=== PATIENT | female | born 1935 | race Caucasian/White ===

== ENCOUNTER → 2016-12-01 | Outpatient (CLI) | payer MEDICARE, OTHER ==
[~2016-12-01] MED LIST: ASPI81TA69 PO; ATE50T PO; CALCTAB83 OR; CHOL100047 PO; LEVO50TA61 PO; NOR10T PO; POTA-167 PO; PRAS10TA PO; [UNRECOGNIZED DRUG - CODE] TL
== END | disposition home or self-care (01) ==
LOC: Rad HDHVI 12:10
PROVIDERS: ATTEND Internal Medicine Cardiovascular Disease
DX: R05 Cough (principal)
CPT/HCPCS: 71020

== ENCOUNTER → 2017-02-20 | Outpatient (CLI) | payer MEDICARE, OTHER | END | disposition home or self-care (01) | LOC: Rad HDHVI 13:53 | PROVIDERS: ATTEND Internal Medicine Cardiovascular Disease | DX: I70.0 Atherosclerosis of aorta (principal) | CPT/HCPCS: 71020 ==

== ENCOUNTER → 2017-04-27 | Outpatient (CLI) | payer MEDICARE, OTHER ==
[2017-04-27 13:04] LABS: Basophils # (auto) 0 uL; Basophils % (auto) 0.5 % (0.0-2.0); CONDITION Y; Eosinophils # (auto) 0.2 uL; Eosinophils % (auto) 2.8 % (0.0-7.0); Hemoglobin 14.1 g/dL (12.2-16.2); Lymphocytes # (auto) 2.3 uL; Lymphocytes % (auto) 34.3 % (10.0-50.0); Mean Corpuscular Hemoglobin 30.6 pg (28.0-32.0); Mean Corpuscular Hgb Conc. 33.5 g/dL (32.0-36.0); Mean Corpuscular Volume 91.1 fL (80.0-100.0); Mean Platelet Volume 8.6 fL (7.4-10.4); Monocytes # (auto) 0.5 uL; Monocytes % (auto) 7.6 % (0.0-12.0); Neutrophils # (auto) 3.6 uL; Neutrophils % (auto) 54.8 % (37.0-80.0); Platelet Count (auto) 256 10^3/uL (140-450); Red Cell Distribution Width 14.7 % (11.6-16.0); White Blood Cell 6.6 10^3/uL (4.4-10.8)
[2017-04-27 13:08] LABS: Urine Bilirubin Negative (Negative); Urine Blood Negative /uL (Negative); Urine Color Yellow (Yellow); Urine Glucose Normal (Normal); Urine Ketone Negative (Negative); Urine Nitrite Negative (Negative); Urine Urobilinogen Normal (Negative); Urine pH 5.5 (5.0-8.0)
[2017-04-27 13:33] LABS: Albumin 3.8 g/dL (3.4-5.0); Alkaline Phosphatase 56 U/L (45-117); Anion Gap 6 (5-15); Aspartate Aminotransferase 21 U/L (15-37); BUN/Creatinine Ratio 27.4; Bilirubin, Direct < 0.1 mg/dL (0-0.2); Bilirubin, Total 0.5 mg/dL (0.2-1.0); Blood Urea Nitrogen 17 mg/dL (7-18); Carbon Dioxide 28 mmol/L (21-32); Chloride 107 mmol/L (98-107); Cholesterol 187 mg/dL (< 200); GFR African American 118 mL/min; GFR Non-African American 98 mL/min; Glucose 91 mg/dL (74-106); HDL Cholesterol 33 mg/dL (40-59); LDL Cholesterol 132 mg/dL (< 100); Potassium 4.1 mmol/L (3.5-5.1); Sodium 141 mmol/L (136-145); Total Protein 7.3 g/dL (6.4-8.2); Triglycerides 120 mg/dL (< 150)
== END | disposition home or self-care (01) ==
LOC: Rad HDHVI 11:01
PROVIDERS: ATTEND Internal Medicine Cardiovascular Disease
DX: E03.9 Hypothyroidism, unspecified (principal); E78.00 Pure hypercholesterolemia, unspecified; D64.9 Anemia, unspecified; I10 Essential (primary) hypertension; E55.9 Vitamin D deficiency, unspecified; K74.1 Hepatic sclerosis; E11.9 Type 2 diabetes mellitus without complications; N39.0 Urinary tract infection, site not specified
CPT/HCPCS: 36415; 74176; 80048; 80061; 80076; 81003; 82306; 83036; 84443; 85025; 87086

== ENCOUNTER → 2017-07-24 | Outpatient (CLI) | payer MEDICARE, MEDICAID ==
[2017-07-24 13:01] LABS: Calcium 8.9 mg/dL (8.5-10.1); Potassium 4.6 mmol/L (3.5-5.1)
== END | disposition home or self-care (01) ==
LOC: LAB 09:58
PROVIDERS: ATTEND Internal Medicine Cardiovascular Disease
DX: I10 Essential (primary) hypertension (principal); E11.9 Type 2 diabetes mellitus without complications
CPT/HCPCS: 36415; 80048; 83036

== ENCOUNTER → 2017-09-24 | Outpatient (CLI) | payer MEDICARE, MEDICAID | END | disposition home or self-care (01) | LOC: Rad HDHVI 11:39 | PROVIDERS: ATTEND Internal Medicine Cardiovascular Disease | DX: G31.89 Other specified degenerative diseases of nervous system (principal); I67.2 Cerebral atherosclerosis; I67.82 Cerebral ischemia | CPT/HCPCS: 70450 ==

== ENCOUNTER → 2017-10-09 | Outpatient (CLI) | payer MEDICARE, MEDICAID | END | disposition home or self-care (01) | LOC: Rad HDHVI 12:52 | PROVIDERS: ATTEND Internal Medicine Cardiovascular Disease | DX: I70.0 Atherosclerosis of aorta (principal); M47.899 Other spondylosis, site unspecified | CPT/HCPCS: 71020 ==

== ENCOUNTER 2017-10-16 18:27 | Emergency (ER) | payer MEDICARE, MEDICAID ==
[~2017-10-16] VITALS: Ht 160 cm; Wt 56.2 kg
[2017-10-16 19:36] VITALS: BP 173/78
[2017-10-16 21:14] LABS: Urine Bacteria NONE SEEN /hpf (None Seen); Urine Blood Negative /uL (Negative); Urine Mucus FEW (None Seen); Urine Specific Gravity 1.038 (1.001-1.035); Urine WBC 27 /hpf (0 - 5)
[2017-10-16 22:34] LABS: Alanine Aminotransferase 68 U/L (13-56); Albumin 3.7 g/dL (3.4-5.0); Alkaline Phosphatase 61 U/L (45-117); Anion Gap 8 (5-15); Aspartate Aminotransferase 28 U/L (15-37); BUN/Creatinine Ratio 39.7; Bilirubin, Total 0.5 mg/dL (0.2-1.0); Blood Urea Nitrogen 29 mg/dL (7-18); Calcium 8.5 mg/dL (8.5-10.1); Carbon Dioxide 26 mmol/L (21-32); Chloride 107 mmol/L (98-107); GFR African American 98 mL/min; GFR Non-African American 81 mL/min; Glucose 97 mg/dL (74-106); Sodium 141 mmol/L (136-145); Total Protein 7.1 g/dL (6.4-8.2)
[2017-10-16 22:50] LABS: Basophils # (auto) 0 uL; Basophils % (auto) 0.2 % (0.0-2.0); Eosinophils # (auto) 0 uL; Eosinophils % (auto) 0.4 % (0.0-7.0); Hematocrit 47.4 % (36.0-46.0); Hemoglobin 15.9 g/dL (12.2-16.2); Lymphocytes # (auto) 3.3 uL; Lymphocytes % (auto) 32.5 % (10.0-50.0); Mean Corpuscular Hemoglobin 30.3 pg (28.0-32.0); Mean Corpuscular Hgb Conc. 33.5 g/dL (32.0-36.0); Mean Corpuscular Volume 90.4 fL (80.0-100.0); Monocytes # (auto) 0.9 uL; Neutrophils # (auto) 5.8 uL; Neutrophils % (auto) 57.9 % (37.0-80.0); Nucleated Red Blood Cells % 0.1 %; Platelet Count (auto) 315 10^3/uL (140-450); Red Blood Cells 5.24 10^6/uL (4.0-5.20); Red Cell Distribution Width 16.1 % (11.8-14.3)
[2017-10-16 23:07] LABS: INR 1.03 (0.9-1.15); Partial Thromboplastin Time 25.4 sec (22.64-33.71); Prothrombin Time 11.2 sec (9.37-12.3)
[2017-10-16] MEDS ORDERED: SODIUM CHLORIDE 0.9% 1,000 ML IV ONE (23:25)
[2017-10-16] MEDS ORDERED: IPRATROPIUM BROM 0.5 MG/2.5ML INH SOL NEB ONE (23:30)
[2017-10-16] MEDS ORDERED: methylPREDNISolone SOD SUCC 125 MG/2 ML VL IV ONE (23:30)
[2017-10-16] MEDS ORDERED: ALBUTEROL SULF 2.5 MG/0.5ML(0.5%) NEB SOLN NEB ONE (23:30)
[2017-10-16] MEDS ORDERED: cefTRIAXone 1GM/10ml IVPUSH 10 ML IV ONE (23:30)
== END 2017-10-17 02:24 | disposition left against medical advice (07) ==
LOC: ER 18:27
DX: J44.1 Chronic obstructive pulmonary disease with (acute) exacerbation (principal); N39.0 Urinary tract infection, site not specified; I10 Essential (primary) hypertension; E78.5 Hyperlipidemia, unspecified; Z87.891 Personal history of nicotine dependence
CPT/HCPCS: 36415; 71046; 80053; 81001; 83880; 84484; 85025; 85610; 85730; 93005

== ENCOUNTER → 2018-02-19 | Outpatient (CLI) | payer MEDICARE, MEDICAID | END | disposition home or self-care (01) | LOC: Rad HDHVI 11:00 | PROVIDERS: ATTEND Internal Medicine | DX: M19.012 Primary osteoarthritis, left shoulder (principal); M75.82 Other shoulder lesions, left shoulder; I10 Essential (primary) hypertension; E78.5 Hyperlipidemia, unspecified; J44.1 Chronic obstructive pulmonary disease with (acute) exacerbation | CPT/HCPCS: 73030 ==

== ENCOUNTER → 2018-12-16 | Outpatient (CLI) | payer MEDICARE, MEDICAID ==
[2018-12-16 16:17] LABS: BUN/Creatinine Ratio 28.1; Potassium 4.1 mmol/L (3.5-5.1)
== END | disposition home or self-care (01) ==
LOC: Rad HDHVI 10:58
PROVIDERS: ATTEND Internal Medicine
DX: M77.52 Other enthesopathy of left foot and ankle (principal); M10.9 Gout, unspecified; I10 Essential (primary) hypertension; I70.0 Atherosclerosis of aorta; J90 Pleural effusion, not elsewhere classified; M79.671 Pain in right foot
CPT/HCPCS: 36415; 71046; 73630; 80048; 84550

== ENCOUNTER → 2018-12-23 | Outpatient (CLI) | payer MEDICARE, MEDICAID ==
[~2018-12-23] MED LIST changes: +CYANOCOBALAMIN (B-12) 1000 MCG/1 ML VIAL IM ONE; +CYANOCOBALAMIN (B-12) 1000 MCG/1 ML VIAL ONE; +KETOROLAC TROMETH 60MG/2ML VIAL IM ONE; +MULTIPLE VITAMIN 10 ML, MAGNESIUM SULF SDV 50% 8 MEQ in SODIUM CHLORIDE 0.9% 1,000 ML IV SCH; +MVI in SODIUM CHLORIDE 0.9% 1,010 ML ONE; +cefTRIAXone 1GM/50ML D5W 50 ML IV ONE; +cefTRIAXone 1GM/50ML D5W 50 ML IV SCH
[2018-12-23 10:20] VITALS: BP 176/91
[2018-12-23 12:28] LABS: Basophils # (auto) 0 uL; Basophils % (auto) 0.1 % (0.0-2.0); Eosinophils # (auto) 0 uL; Hematocrit 45.3 % (36.0-46.0); Hemoglobin 15.4 g/dL (12.2-16.2); Lymphocytes # (auto) 1.2 uL; Lymphocytes % (auto) 13.5 % (10.0-50.0); Mean Corpuscular Hemoglobin 31.4 pg (28.0-32.0); Mean Corpuscular Volume 92.3 fL (80.0-100.0); Monocytes # (auto) 0.9 uL; Monocytes % (auto) 9.9 % (0.0-12.0); Neutrophils # (auto) 6.8 uL; Neutrophils % (auto) 76.5 % (37.0-80.0); Nucleated Red Blood Cells % 0.1 %; Platelet Count (auto) 245 10^3/uL (140-450); Red Blood Cells 4.91 10^6/uL (4.0-5.20); Red Cell Distribution Width 14.8 % (11.8-14.3); White Blood Cell 8.9 10^3/uL (4.4-10.8)
[2018-12-23 12:30] LABS: BUN/Creatinine Ratio 31.5; Calcium 8.8 mg/dL (8.5-10.1); Potassium 3.9 mmol/L (3.5-5.1)
[2018-12-23 13:15] VITALS: BP 150/88
--- NOTE | 2019-02-12 15:26 | NUR ---
[facility] ADDENDUM 1030 START TIME FOR BANANA BAG 1230 STOP TIME FOR BANANA BAG
== END | disposition home or self-care (01) ==
LOC: Rad HDHVI 10:12
PROVIDERS: ATTEND Internal Medicine Cardiovascular Disease
DX: D64.9 Anemia, unspecified (principal); R07.9 Chest pain, unspecified; J44.9 Chronic obstructive pulmonary disease, unspecified; R00.1 Bradycardia, unspecified; E86.0 Dehydration; I10 Essential (primary) hypertension; J18.9 Pneumonia, unspecified organism; M10.9 Gout, unspecified
CPT/HCPCS: 36415; 71046; 80048; 85025; 94640; 96365; 96366; 96372; 96375; G0463; J0696; J1885; J3411; J3420; J3475

== ENCOUNTER → 2018-12-25 | Outpatient (CLI) | payer MEDICARE, MEDICAID ==
[~2018-12-25] VITALS: Ht 30.5 cm; Wt 0.0 kg
[~2018-12-25] MED LIST changes: -CYANOCOBALAMIN (B-12) 1000 MCG/1 ML VIAL IM ONE; -CYANOCOBALAMIN (B-12) 1000 MCG/1 ML VIAL ONE; -KETOROLAC TROMETH 60MG/2ML VIAL IM ONE; -MULTIPLE VITAMIN 10 ML, MAGNESIUM SULF SDV 50% 8 MEQ in SODIUM CHLORIDE 0.9% 1,000 ML IV SCH; -MVI in SODIUM CHLORIDE 0.9% 1,010 ML ONE; -cefTRIAXone 1GM/50ML D5W 50 ML IV SCH; +cefTRIAXone SOD 1,000 MG VL ONE; +cloNIDine HCL 0.1 MG TAB ONE; +methylPREDNISolone SOD SUCC 125 MG/2 ML VL IV ONE; +methylPREDNISolone SOD SUCC 125 MG/2 ML VL ONE
[2018-12-25 10:33] VITALS: BP 177/74
[2018-12-25 11:40] VITALS: BP 174/73
--- NOTE | 2018-12-25 11:40 | NUR ---
[facility] Discharge Instructions See e-MAR for any mediations given with this visit. Patient education given on disease process. Patient verbalized understanding. Previous labs reviewed. Patient discharged in stable condition with after care instructions and follow up appointment. NOTE ROCEPHIN IVP ADMIN MICHELLE MAY SOLUMEDROL IVP ADMIN BY MICHELLE MAY
== END | disposition home or self-care (01) ==
LOC: CHF HDHVI 10:34
PROVIDERS: ATTEND Internal Medicine Cardiovascular Disease
DX: J44.9 Chronic obstructive pulmonary disease, unspecified (principal); J20.9 Acute bronchitis, unspecified; M10.9 Gout, unspecified; I10 Essential (primary) hypertension; Z87.01 Personal history of pneumonia (recurrent)
CPT/HCPCS: 96374; 96375; G0463; J0696; J2930; J7060

== ENCOUNTER → 2018-12-27 | Outpatient (CLI) | payer MEDICARE, MEDICAID ==
[~2018-12-27] VITALS: Ht 30.5 cm; Wt 0.5 kg
[~2018-12-27] MED LIST changes: +ALBUTEROL SULF 2.5 MG/0.5ML(0.5%) NEB SOLN NEB ONE; -cloNIDine HCL 0.1 MG TAB ONE
[2018-12-27 13:10] VITALS: BP 148/80
[2018-12-27 13:45] VITALS: BP 140/67
--- NOTE | 2018-12-27 13:55 | NUR ---
IN TO CLINIC AFTER SEEING DR LAYTON AGAIN TODAY. PT STILL VERY DRY SKIN WITH RED CHEEKS, BUT DECREASED REDNESS IN CHEEKS TODAY. WITHOUT DISTRESS. AFFECT CHEERFUL AND COOPERATIVE. DENIES PAIN. MEDICATED PER ORDER. MEDICATED WITH NEBULIZER PER ORDER. TOLERATED WELL. DISCHARGED TO CARE OF DAUGHTER WITHOUT DISTRESS OR DISCOMFORT. MEDICATION ADMINISTRATION ROCEPHIN 1 GRAM IVP AT 1315 SOLUMEDROL 125 MG IVP AT 1320 MED NEB WITH DUO NEB AT 1330 Addendum: 02/12/19 at 1635 by MICHELLE PFEIFFER RN RN [place] LATE ENTRY FOR 12/27/2018 1320 MED NEB ALBUTEROL 2.5MG INHALATION X1
== END | disposition home or self-care (01) ==
LOC: Rad HDHVI 12:59
PROVIDERS: ATTEND Internal Medicine Cardiovascular Disease
DX: J20.9 Acute bronchitis, unspecified (principal); J44.9 Chronic obstructive pulmonary disease, unspecified; I10 Essential (primary) hypertension; M10.9 Gout, unspecified; Z87.01 Personal history of pneumonia (recurrent)
CPT/HCPCS: 94640; 96374; 96375; G0463; J0696; J2930; J7611

== ENCOUNTER → 2019-02-19 | Outpatient (CLI) | payer MEDICARE, MEDICAID ==
[~2019-02-19] MED LIST changes: -ALBUTEROL SULF 2.5 MG/0.5ML(0.5%) NEB SOLN NEB ONE; -cefTRIAXone 1GM/50ML D5W 50 ML IV ONE; -cefTRIAXone SOD 1,000 MG VL ONE; -methylPREDNISolone SOD SUCC 125 MG/2 ML VL IV ONE; -methylPREDNISolone SOD SUCC 125 MG/2 ML VL ONE
== END | disposition home or self-care (01) ==
LOC: Rad HDHVI 11:54
PROVIDERS: ATTEND Internal Medicine Cardiovascular Disease
DX: I70.0 Atherosclerosis of aorta (principal); K76.89 Other specified diseases of liver; R06.02 Shortness of breath
CPT/HCPCS: 71250

== ENCOUNTER → 2019-07-21 | Outpatient (CLI) | payer MEDICARE, MEDICAID ==
[2019-07-21 16:06] LABS: Urine Blood Negative /uL (Negative); Urine Specific Gravity 1.028 (1.001-1.035)
== END | disposition home or self-care (01) ==
LOC: LAB 12:07
PROVIDERS: ATTEND Internal Medicine Cardiovascular Disease
DX: N39.0 Urinary tract infection, site not specified (principal)
CPT/HCPCS: 81003; 87086; 87088; 87186

== ENCOUNTER → 2019-08-22 | Outpatient (CLI) | payer MEDICARE, MEDICAID | END | disposition home or self-care (01) | LOC: Rad HDHVI 09:31 | PROVIDERS: ATTEND Internal Medicine Cardiovascular Disease | DX: J44.9 Chronic obstructive pulmonary disease, unspecified (principal); I48.19 Other persistent atrial fibrillation; R42 Dizziness and giddiness; Z85.41 Personal history of malignant neoplasm of cervix uteri; Z88.8 Allergy status to other drugs, medicaments and biological substances | CPT/HCPCS: 93306 ==

== ENCOUNTER → 2019-09-04 | Outpatient (CLI) | payer MEDICARE, MEDICAID ==
[~2019-09-04] VITALS: Ht 160 cm; Wt 58.5 kg
[~2019-09-04] MED LIST changes: +ADENOSINE 49 MG in GIVE UN-DILUTED 0 ML IV ONE
[2019-09-04 12:00] LABS: Basophils # (auto) 0 uL; Basophils % (auto) 0.7 % (0.0-2.0); Eosinophils # (auto) 0.1 uL; Eosinophils % (auto) 1.8 % (0.0-7.0); Hematocrit 40.6 % (36.0-46.0); Hemoglobin 13.6 g/dL (12.2-16.2); Lymphocytes # (auto) 2.4 uL; Lymphocytes % (auto) 34.5 % (10.0-50.0); Mean Corpuscular Hemoglobin 30.7 pg (28.0-32.0); Mean Corpuscular Hgb Conc. 33.4 g/dL (32.0-36.0); Mean Corpuscular Volume 91.9 fL (80.0-100.0); Monocytes # (auto) 0.5 uL; Monocytes % (auto) 7.1 % (0.0-12.0); Neutrophils # (auto) 3.9 uL; Neutrophils % (auto) 55.9 % (37.0-80.0); Nucleated Red Blood Cells % 0.1 %; Platelet Count (auto) 250 10^3/uL (140-450); Red Blood Cells 4.42 10^6/uL (4.0-5.20); Red Cell Distribution Width 14.8 % (11.8-14.3)
[2019-09-04 12:01] LABS: Urine Blood Negative /uL (Negative); Urine Specific Gravity 1.019 (1.001-1.035)
[2019-09-04 12:10] LABS: Albumin 3.9 g/dL (3.4-5.0); Potassium 3.9 mmol/L (3.5-5.1)
[2019-09-04 12:17] LABS: BUN/Creatinine Ratio 22.9; Bilirubin, Total 0.5 mg/dL (0.2-1.0); Total Protein 6.9 g/dL (6.4-8.2)
[2019-09-04 12:34] LABS: Free T4 (Free Thyroxine) 0.98 ng/dL (0.89-1.76)
== END | disposition home or self-care (01) ==
LOC: Rad HDHVI 08:10
PROVIDERS: ATTEND Internal Medicine Cardiovascular Disease
DX: E03.9 Hypothyroidism, unspecified (principal); K90.9 Intestinal malabsorption, unspecified; N39.0 Urinary tract infection, site not specified; D51.9 Vitamin B12 deficiency anemia, unspecified; Z79.899 Other long term (current) drug therapy
CPT/HCPCS: 36415; 78452; 80053; 80061; 81003; 82306; 82607; 83036; 84439; 84443; 85025; 87086; 93017; 96374; A9500; J0153

== ENCOUNTER → 2020-06-16 | Outpatient (CLI) | payer MEDICARE, MEDICAID ==
[~2020-06-16] MED LIST changes: -ADENOSINE 49 MG in GIVE UN-DILUTED 0 ML IV ONE
[2020-06-16 12:16] LABS: Basophils # (auto) 0.1 10 ^3/uL (0-0.2); Basophils % (auto) 0.9 % (0.0-2.0); Eosinophils # (auto) 0.2 10 ^3/uL (0-0.8); Eosinophils % (auto) 3.8 % (0.0-7.0); Hematocrit 39.1 % (36.0-46.0); Hemoglobin 12.7 g/dL (12.2-16.2); Lymphocytes # (auto) 1.8 10 ^3/uL (0.4-5.4); Lymphocytes % (auto) 28.9 % (10.0-50.0); Mean Corpuscular Hemoglobin 29.8 pg (28.0-32.0); Mean Corpuscular Hgb Conc. 32.5 g/dL (32.0-36.0); Mean Corpuscular Volume 91.9 fL (80.0-100.0); Monocytes # (auto) 0.5 10 ^3/uL (0-1.3); Monocytes % (auto) 7.8 % (0.0-12.0); Neutrophils # (auto) 3.7 10 ^3/uL (1.6-8.6); Neutrophils % (auto) 58.6 % (37.0-80.0); Nucleated Red Blood Cells % 0.2 %; Platelet Count (auto) 259 10^3/uL (140-450); Red Blood Cells 4.26 10^6/uL (4.0-5.20); Red Cell Distribution Width 14.7 % (11.8-14.3); White Blood Cell 6.2 10^3/uL (4.4-10.8)
[2020-06-16 12:23] LABS: Urine Blood Negative /uL (Negative); Urine Specific Gravity 1.021 (1.001-1.035)
[2020-06-16 12:31] LABS: Albumin 3.5 g/dL (3.4-5.0); Potassium 4.3 mmol/L (3.5-5.1)
[2020-06-16 12:38] LABS: BUN/Creatinine Ratio 25.6; Bilirubin, Total 0.4 mg/dL (0.2-1.0); Calcium 8.8 mg/dL (8.5-10.1); Total Protein 6.5 g/dL (6.4-8.2)
[2020-06-16 12:43] LABS: Free T4 (Free Thyroxine) 1.02 ng/dL (0.89-1.76)
== END | disposition home or self-care (01) ==
LOC: LAB 09:10
PROVIDERS: ATTEND Internal Medicine Cardiovascular Disease
DX: E11.9 Type 2 diabetes mellitus without complications (principal); I10 Essential (primary) hypertension; E03.9 Hypothyroidism, unspecified; K90.9 Intestinal malabsorption, unspecified; N39.0 Urinary tract infection, site not specified; D51.9 Vitamin B12 deficiency anemia, unspecified; D64.9 Anemia, unspecified; E78.5 Hyperlipidemia, unspecified; E55.9 Vitamin D deficiency, unspecified; Z00.00 Encounter for general adult medical examination without abnormal findings; Z79.899 Other long term (current) drug therapy
CPT/HCPCS: 36415; 80053; 80061; 81003; 82306; 82607; 83036; 84439; 84443; 85025; 87086

== ENCOUNTER → 2020-06-22 | Outpatient (CLI) | payer MEDICARE, MEDICAID | END | disposition home or self-care (01) | LOC: LAB 09:38 | PROVIDERS: ATTEND Internal Medicine Cardiovascular Disease | DX: N39.0 Urinary tract infection, site not specified (principal) | CPT/HCPCS: 87086 ==

== ENCOUNTER → 2020-06-30 | Outpatient (CLI) | payer MEDICARE, MEDICAID ==
[2020-06-30 12:12] LABS: Urine Blood Negative /uL (Negative); Urine Specific Gravity 1.016 (1.001-1.035)
== END | disposition home or self-care (01) ==
LOC: LAB 11:10
PROVIDERS: ATTEND Internal Medicine Cardiovascular Disease
DX: N39.0 Urinary tract infection, site not specified (principal)
CPT/HCPCS: 81003; 87086

== ENCOUNTER → 2020-07-01 | Outpatient (CLI) | payer MEDICARE, MEDICAID | END | disposition home or self-care (01) | LOC: Rad HDHVI 10:51 | PROVIDERS: ATTEND Internal Medicine Cardiovascular Disease | DX: I50.33 Acute on chronic diastolic (congestive) heart failure (principal); R00.2 Palpitations; R06.02 Shortness of breath | CPT/HCPCS: 93306 ==

== ENCOUNTER 2020-07-09 21:34 | Inpatient (IN) | payer MEDICARE, MEDICAID ==
[~2020-07-09] VITALS: Ht 160 cm; Wt 55.4 kg
[2020-07-10 00:22] LABS: Basophils # (auto) 0.1 10 ^3/uL (0-0.2); Basophils % (auto) 1.1 % (0.0-2.0); Eosinophils # (auto) 0 10 ^3/uL (0-0.8); Eosinophils % (auto) 0.2 % (0.0-7.0); Hematocrit 37.8 % (36.0-46.0); Hemoglobin 12.8 g/dL (12.2-16.2); Lymphocytes # (auto) 0.8 10 ^3/uL (0.4-5.4); Lymphocytes % (auto) 14.7 % (10.0-50.0); Mean Corpuscular Hemoglobin 30.6 pg (28.0-32.0); Mean Corpuscular Hgb Conc. 33.8 g/dL (32.0-36.0); Mean Corpuscular Volume 90.8 fL (80.0-100.0); Monocytes # (auto) 0.5 10 ^3/uL (0-1.3); Monocytes % (auto) 8.5 % (0.0-12.0); Neutrophils # (auto) 4.3 10 ^3/uL (1.6-8.6); Neutrophils % (auto) 75.5 % (37.0-80.0); Nucleated Red Blood Cells % 0.2 %; Platelet Count (auto) 212 10^3/uL (140-450); Red Blood Cells 4.17 10^6/uL (4.0-5.20); Red Cell Distribution Width 14.4 % (11.8-14.3); White Blood Cell 5.6 10^3/uL (4.4-10.8)
[2020-07-10 01:03] LABS: Alanine Aminotransferase 38 U/L (13-56); Anion Gap 6 (5-15); Aspartate Aminotransferase 25 U/L (15-37); BUN/Creatinine Ratio 36.1; Blood Urea Nitrogen 26 mg/dL (7-18); Calcium 8.4 mg/dL (8.5-10.1); Carbon Dioxide 25 mmol/L (21-32); Chloride 107 mmol/L (98-107); GFR African American 99 mL/min; GFR Non-African American 82 mL/min; Glucose 102 mg/dL (74-106); Magnesium 2.2 mg/dL (1.6-2.6); Sodium 138 mmol/L (136-145)
[2020-07-10 01:09] LABS: Alkaline Phosphatase 50 U/L (45-117); Bilirubin, Total 0.4 mg/dL (0.2-1.0); Total Protein 6.1 g/dL (6.4-8.2)
[2020-07-10] MEDS ORDERED: MORPHINE SULFATE 4 MG/ML SYR/VIAL IV ONE (04:15)
[2020-07-10] MEDS ORDERED: ONDANSETRON HCL 4 MG/2 ML VIAL IV ONE (04:15)
[2020-07-10] MEDS ORDERED: cloNIDine HCL 0.1 MG TAB PO PRN (06:15)
[2020-07-10] MEDS ORDERED: NITROGLYCERIN 0.4 MG SL TAB SL PRN (06:15)
[2020-07-10] MEDS ORDERED: MORPHINE SULF INJ 2 MG/ML SYRINGE 1ML IV PRN (06:15)
[2020-07-10] MEDS: AZITHROMYCIN 500MG/ 250ML 250 ML IV SCH (08:07)
[2020-07-10 08:39] VITALS: BP 137/61
[2020-07-10 09:05] VITALS: BP 137/61
[2020-07-10] MEDS: ZINC SULFATE 220mg CAP or TAB PO SCH (10:23)
[2020-07-10] MEDS: METOPROLOL SUCCINATE XL 50 MG TAB PO SCH (10:24)
[2020-07-10] MEDS: ASCORBIC ACID 500 MG TAB PO SCH (10:27)
[2020-07-10] MEDS: CHOLECALCIFEROL (VITD3) 1,000UNIT=25mCg TAB PO SCH (10:27)
[2020-07-10 11:44] VITALS: BP 137/61
[2020-07-10 13:08] VITALS: BP 130/54
[2020-07-10] MEDS: DexAMETHasone SOD PHOS 10MG/1ML VIAL INJ IV SCH ×2 (14:51→21:05)
[2020-07-10] MEDS: LEVALBUTEROL HCL 1.25 MG/3 ML NEB NEB SCH ×2 (15:06→22:25)
[2020-07-10 16:36] VITALS: BP 133/57
[2020-07-10 22:00] VITALS: BP 132/81
[2020-07-11 03:59] LABS: Urine Bacteria FEW /hpf (None Seen); Urine Blood Negative /uL (Negative); Urine Mucus FEW (None Seen); Urine Specific Gravity 1.013 (1.001-1.035); Urine WBC 2 /hpf (0 - 5)
[2020-07-11 04:41] VITALS: BP 157/71
[2020-07-11] MEDS: LEVALBUTEROL HCL 1.25 MG/3 ML NEB NEB SCH ×3 (06:55→22:58)
[2020-07-11] MEDS: DexAMETHasone SOD PHOS 10MG/1ML VIAL INJ IV SCH ×3 (07:05→21:58)
[2020-07-11] MEDS: AZITHROMYCIN 500MG/ 250ML 250 ML IV SCH (07:05)
[2020-07-11 08:00] VITALS: BP 120/61
[2020-07-11] MEDS: ZINC SULFATE 220mg CAP or TAB PO SCH (09:30)
[2020-07-11] MEDS: METOPROLOL SUCCINATE XL 50 MG TAB PO SCH (09:30)
[2020-07-11] MEDS: CHOLECALCIFEROL (VITD3) 1,000UNIT=25mCg TAB PO SCH (09:30)
[2020-07-11] MEDS: ASCORBIC ACID 500 MG TAB PO SCH (09:30)
[2020-07-11] MEDS ORDERED: THROAT LOZENGES(CEPASTAT) MT PRN (11:15)
[2020-07-11] MEDS ORDERED: TRIAMCINOLONE ACET0.5% TOPICAL CRE 15GM TOP ONE (11:15)
[2020-07-11 12:00] VITALS: BP 137/75
[2020-07-11] MEDS: HYDROcodone-ACET 10/325MG TAB PO PRN ×2 (12:22→21:58)
[2020-07-11 17:00] VITALS: BP 130/68
[2020-07-11 22:00] VITALS: BP 132/62
[2020-07-12 04:58] VITALS: BP 141/54
[2020-07-12] MEDS: AZITHROMYCIN 500MG/ 250ML 250 ML IV SCH (06:14)
[2020-07-12] MEDS: LEVALBUTEROL HCL 1.25 MG/3 ML NEB NEB SCH ×3 (06:52→22:36)
[2020-07-12 09:00] VITALS: BP 129/62
[2020-07-12] MEDS: METOPROLOL SUCCINATE XL 50 MG TAB PO SCH (10:10)
[2020-07-12] MEDS: ASCORBIC ACID 500 MG TAB PO SCH (10:11)
[2020-07-12] MEDS: ZINC SULFATE 220mg CAP or TAB PO SCH (10:13)
[2020-07-12] MEDS: CHOLECALCIFEROL (VITD3) 1,000UNIT=25mCg TAB PO SCH (10:26)
[2020-07-12] MEDS: DexAMETHasone SOD PHOS 10MG/1ML VIAL INJ IV SCH ×2 (10:32→22:26)
[2020-07-12 13:00] VITALS: BP 134/74
[2020-07-12 17:00] VITALS: BP 123/63
[2020-07-12 22:00] VITALS: BP 130/69
[2020-07-13 05:00] VITALS: BP 137/67
[2020-07-13] MEDS: AZITHROMYCIN 500MG/ 250ML 250 ML IV SCH (06:38)
[2020-07-13] MEDS: LEVALBUTEROL HCL 1.25 MG/3 ML NEB NEB SCH ×3 (06:56→22:19)
[2020-07-13 09:00] VITALS: BP 103/65
[2020-07-13] MEDS: METOPROLOL SUCCINATE XL 50 MG TAB PO SCH (09:22)
[2020-07-13] MEDS: ZINC SULFATE 220mg CAP or TAB PO SCH (09:22)
[2020-07-13] MEDS: CHOLECALCIFEROL (VITD3) 1,000UNIT=25mCg TAB PO SCH (09:23)
[2020-07-13] MEDS: HYDROcodone-ACET 10/325MG TAB PO PRN (09:23)
[2020-07-13] MEDS: DexAMETHasone SOD PHOS 10MG/1ML VIAL INJ IV SCH ×2 (09:23→22:09)
[2020-07-13] MEDS: ASCORBIC ACID 500 MG TAB PO SCH (09:23)
[2020-07-13 13:00] VITALS: BP 137/66
[2020-07-13 17:00] VITALS: BP 147/69
[2020-07-13 22:18] VITALS: BP 141/72
[2020-07-14 05:00] VITALS: BP 144/71
[2020-07-14] MEDS: AZITHROMYCIN 500MG/ 250ML 250 ML IV SCH (06:44)
[2020-07-14] MEDS: LEVALBUTEROL HCL 1.25 MG/3 ML NEB NEB SCH ×3 (07:03→22:27)
[2020-07-14 09:00] VITALS: BP_SYST 128; BP_SYST 138; BP_DIAS 67; BP_DIAS 79
[2020-07-14] MEDS: ZINC SULFATE 220mg CAP or TAB PO SCH (09:27)
[2020-07-14] MEDS: ASCORBIC ACID 500 MG TAB PO SCH (09:28)
[2020-07-14] MEDS: CHOLECALCIFEROL (VITD3) 1,000UNIT=25mCg TAB PO SCH (09:28)
[2020-07-14] MEDS: METOPROLOL SUCCINATE XL 50 MG TAB PO SCH (09:28)
[2020-07-14] MEDS: DexAMETHasone SOD PHOS 10MG/1ML VIAL INJ IV SCH ×2 (09:28→21:29)
[2020-07-14 13:00] VITALS: BP 138/79
[2020-07-14 17:00] VITALS: BP 142/86
[2020-07-14] MEDS ORDERED: ACETAMINOPHEN 325 MG TAB PO PRN ×2 (17:30→17:45)
[2020-07-14] MEDS ORDERED: LACTULOSE 20Gm/30ML SOLN PO ONE (17:45)
[2020-07-14] MEDS ORDERED: ONDANSETRON HCL 4 MG/2 ML VIAL IM ONE (17:45)
[2020-07-14] MEDS ORDERED: ONDANSETRON HCL 4 MG/2 ML VIAL IV PRN (17:45)
[2020-07-14] MEDS: ACETAMINOPHEN 325 MG TAB PO PRN (18:00)
[2020-07-14] MEDS: DOCUSATE SOD 100 MG CAP PO SCH (21:29)
[2020-07-14 22:00] VITALS: BP 137/64
[2020-07-14] MEDS ORDERED: LACTULOSE 20Gm/30ML SOLN PO PRN (22:00)
[2020-07-15 05:00] VITALS: BP 142/61
[2020-07-15] MEDS: AZITHROMYCIN 500MG/ 250ML 250 ML IV SCH (06:11)
[2020-07-15] MEDS: ACETAMINOPHEN 325 MG TAB PO PRN ×2 (06:49→16:52)
[2020-07-15] MEDS: LEVALBUTEROL HCL 1.25 MG/3 ML NEB NEB SCH ×4 (07:00→22:15)
[2020-07-15 09:00] VITALS: BP 135/49
[2020-07-15] MEDS ORDERED: FAMOTIDINE INJECTION 40 MG in SODIUM CHL 0.9% 100 ML IV SCH (10:00)
[2020-07-15] MEDS: METOPROLOL SUCCINATE XL 50 MG TAB PO SCH (10:00)
[2020-07-15] MEDS: DOCUSATE SOD 100 MG CAP PO SCH ×2 (10:12→20:58)
[2020-07-15] MEDS: ZINC SULFATE 220mg CAP or TAB PO SCH (10:12)
[2020-07-15] MEDS: FAMOTIDINE (10MG/ML) 2ML VL IV SCH (10:12)
[2020-07-15] MEDS: CHOLECALCIFEROL (VITD3) 1,000UNIT=25mCg TAB PO SCH (10:14)
[2020-07-15] MEDS: DexAMETHasone SOD PHOS 10MG/1ML VIAL INJ IV SCH ×2 (10:15→20:59)
[2020-07-15] MEDS: ASCORBIC ACID 1,000 MG TAB PO SCH (10:15)
[2020-07-15 13:00] VITALS: BP 140/57
[2020-07-15 17:00] VITALS: BP 138/52
[2020-07-15 22:00] VITALS: BP 122/66
[2020-07-16 04:54] VITALS: BP 142/69
[2020-07-16] MEDS: AZITHROMYCIN 500MG/ 250ML 250 ML IV SCH (06:04)
[2020-07-16] MEDS: ACETAMINOPHEN 325 MG TAB PO PRN (07:08)
[2020-07-16] MEDS ORDERED: NITR400A2 TL (07:34)
[2020-07-16] MEDS ORDERED: APIX2.5T PO (07:34)
[2020-07-16] MEDS: LEVALBUTEROL HCL 1.25 MG/3 ML NEB NEB SCH ×3 (08:04→22:46)
[2020-07-16 08:49] VITALS: BP 142/66
[2020-07-16] MEDS: ZINC SULFATE 220mg CAP or TAB PO SCH (10:07)
[2020-07-16] MEDS: FAMOTIDINE (10MG/ML) 2ML VL IV SCH (10:07)
[2020-07-16] MEDS: METOPROLOL SUCCINATE XL 50 MG TAB PO SCH (10:07)
[2020-07-16] MEDS: ASCORBIC ACID 1,000 MG TAB PO SCH (10:07)
[2020-07-16] MEDS: DOCUSATE SOD 100 MG CAP PO SCH ×2 (10:07→22:37)
[2020-07-16] MEDS: CHOLECALCIFEROL (VITD3) 1,000UNIT=25mCg TAB PO SCH (10:08)
[2020-07-16] MEDS: DexAMETHasone SOD PHOS 10MG/1ML VIAL INJ IV SCH ×2 (10:08→22:37)
[2020-07-16 12:06] VITALS: BP 137/71
[2020-07-16 12:43] VITALS: BP 137/71
[2020-07-16 16:09] VITALS: BP 131/77
[2020-07-16 22:00] VITALS: BP 124/65
[2020-07-17] MEDS: ACETAMINOPHEN 325 MG TAB PO PRN (04:04)
[2020-07-17 05:00] VITALS: BP 145/75
[2020-07-17] MEDS: AZITHROMYCIN 500MG/ 250ML 250 ML IV SCH (06:21)
[2020-07-17 09:00] VITALS: BP 128/75
[2020-07-17] MEDS: ZINC SULFATE 220mg CAP or TAB PO SCH (09:47)
[2020-07-17] MEDS: FAMOTIDINE (10MG/ML) 2ML VL IV SCH (09:47)
[2020-07-17] MEDS: ASCORBIC ACID 1,000 MG TAB PO SCH (09:48)
[2020-07-17] MEDS: DOCUSATE SOD 100 MG CAP PO SCH ×2 (09:48→21:58)
[2020-07-17] MEDS: METOPROLOL SUCCINATE XL 50 MG TAB PO SCH (09:48)
[2020-07-17] MEDS: CHOLECALCIFEROL (VITD3) 1,000UNIT=25mCg TAB PO SCH (09:49)
[2020-07-17] MEDS: DexAMETHasone SOD PHOS 10MG/1ML VIAL INJ IV SCH ×2 (09:49→22:02)
[2020-07-17 13:00] VITALS: BP 145/70
[2020-07-17 16:40] VITALS: BP 138/78
[2020-07-17] MEDS: LEVALBUTEROL HCL 1.25 MG/3 ML NEB NEB SCH (21:57)
[2020-07-17 22:00] VITALS: BP 126/65
[2020-07-18 05:00] VITALS: BP 152/77
[2020-07-18] MEDS: AZITHROMYCIN 500MG/ 250ML 250 ML IV SCH (06:47)
[2020-07-18] MEDS: LEVALBUTEROL HCL 1.25 MG/3 ML NEB NEB SCH ×3 (07:38→21:33)
[2020-07-18 09:00] VITALS: BP 125/64
[2020-07-18] MEDS: DOCUSATE SOD 100 MG CAP PO SCH ×2 (10:07→21:51)
[2020-07-18] MEDS: FAMOTIDINE (10MG/ML) 2ML VL IV SCH (10:07)
[2020-07-18] MEDS: CHOLECALCIFEROL (VITD3) 1,000UNIT=25mCg TAB PO SCH (10:08)
[2020-07-18] MEDS: METOPROLOL SUCCINATE XL 50 MG TAB PO SCH (10:08)
[2020-07-18] MEDS: ZINC SULFATE 220mg CAP or TAB PO SCH (10:08)
[2020-07-18] MEDS: ASCORBIC ACID 1,000 MG TAB PO SCH (10:08)
[2020-07-18] MEDS: DexAMETHasone SOD PHOS 10MG/1ML VIAL INJ IV SCH ×2 (10:09→21:44)
[2020-07-18 13:00] VITALS: BP 136/76
[2020-07-18 16:43] VITALS: BP 121/63
[2020-07-18 22:00] VITALS: BP 134/70
[2020-07-19 05:00] VITALS: BP 130/63
[2020-07-19] MEDS: AZITHROMYCIN 500MG/ 250ML 250 ML IV SCH (06:25)
[2020-07-19 09:00] VITALS: BP 139/90
[2020-07-19] MEDS: FAMOTIDINE (10MG/ML) 2ML VL IV SCH (10:04)
[2020-07-19] MEDS: ZINC SULFATE 220mg CAP or TAB PO SCH (10:04)
[2020-07-19] MEDS: DexAMETHasone SOD PHOS 10MG/1ML VIAL INJ IV SCH ×2 (10:04→21:10)
[2020-07-19] MEDS: DOCUSATE SOD 100 MG CAP PO SCH ×2 (10:05→21:10)
[2020-07-19] MEDS: ASCORBIC ACID 1,000 MG TAB PO SCH (10:05)
[2020-07-19] MEDS: METOPROLOL SUCCINATE XL 50 MG TAB PO SCH (10:05)
[2020-07-19] MEDS: CHOLECALCIFEROL (VITD3) 1,000UNIT=25mCg TAB PO SCH (10:05)
[2020-07-19] MEDS: LEVALBUTEROL HCL 1.25 MG/3 ML NEB NEB SCH ×3 (11:30→22:32)
[2020-07-19 13:00] VITALS: BP 144/68
[2020-07-19 13:53] VITALS: BP 138/88
[2020-07-19 17:00] VITALS: BP 140/69
[2020-07-19 22:00] VITALS: BP 136/63
[2020-07-20 05:01] VITALS: BP 136/70
[2020-07-20] MEDS: AZITHROMYCIN 500MG/ 250ML 250 ML IV SCH (06:42)
[2020-07-20] MEDS: LEVALBUTEROL HCL 1.25 MG/3 ML NEB NEB SCH ×3 (07:13→21:59)
[2020-07-20 09:02] VITALS: BP 123/64
[2020-07-20] MEDS: FAMOTIDINE (10MG/ML) 2ML VL IV SCH (10:23)
[2020-07-20] MEDS: DOCUSATE SOD 100 MG CAP PO SCH ×2 (10:24→21:41)
[2020-07-20] MEDS: ASCORBIC ACID 1,000 MG TAB PO SCH (10:24)
[2020-07-20] MEDS: ZINC SULFATE 220mg CAP or TAB PO SCH (10:24)
[2020-07-20] MEDS: CHOLECALCIFEROL (VITD3) 1,000UNIT=25mCg TAB PO SCH (10:25)
[2020-07-20] MEDS: METOPROLOL SUCCINATE XL 50 MG TAB PO SCH (10:26)
[2020-07-20] MEDS: DexAMETHasone SOD PHOS 10MG/1ML VIAL INJ IV SCH ×2 (10:26→21:41)
[2020-07-20 13:05] VITALS: BP 151/75
[2020-07-20 16:59] VITALS: BP 123/78
[2020-07-20 18:25] LABS: Basophils # (auto) 0.2 10 ^3/uL (0-0.2); Basophils % (auto) 1.2 % (0.0-2.0); Eosinophils # (auto) 0 10 ^3/uL (0-0.8); Hematocrit 37.7 % (36.0-46.0); Hemoglobin 12.6 g/dL (12.2-16.2); Lymphocytes % (auto) 5.6 % (10.0-50.0); Mean Corpuscular Hemoglobin 30.1 pg (28.0-32.0); Mean Corpuscular Hgb Conc. 33.5 g/dL (32.0-36.0); Mean Corpuscular Volume 89.7 fL (80.0-100.0); Monocytes # (auto) 0.7 10 ^3/uL (0-1.3); Monocytes % (auto) 4.4 % (0.0-12.0); Neutrophils # (auto) 15.2 10 ^3/uL (1.6-8.6); Neutrophils % (auto) 88.8 % (37.0-80.0); Platelet Count (auto) 218 10^3/uL (140-450); Red Cell Distribution Width 14.3 % (11.8-14.3); White Blood Cell 17.1 10^3/uL (4.4-10.8)
[2020-07-20 18:54] LABS: BUN/Creatinine Ratio 54.7; Calcium 8.1 mg/dL (8.5-10.1); Potassium 4.4 mmol/L (3.5-5.1)
[2020-07-20 22:00] VITALS: BP 119/68
[2020-07-21 05:00] VITALS: BP 145/68
[2020-07-21] MEDS: AZITHROMYCIN 500MG/ 250ML 250 ML IV SCH (05:45)
[2020-07-21] MEDS: LEVALBUTEROL HCL 1.25 MG/3 ML NEB NEB SCH ×2 (07:20→14:50)
[2020-07-21 08:55] VITALS: BP 123/64
[2020-07-21] MEDS: METOPROLOL SUCCINATE XL 50 MG TAB PO SCH (09:38)
[2020-07-21] MEDS: ZINC SULFATE 220mg CAP or TAB PO SCH (09:38)
[2020-07-21] MEDS: DOCUSATE SOD 100 MG CAP PO SCH (09:39)
[2020-07-21] MEDS: ASCORBIC ACID 1,000 MG TAB PO SCH (09:39)
[2020-07-21] MEDS: DexAMETHasone SOD PHOS 10MG/1ML VIAL INJ IV SCH (09:40)
[2020-07-21] MEDS: CHOLECALCIFEROL (VITD3) 1,000UNIT=25mCg TAB PO SCH (09:40)
[2020-07-21] MEDS: FAMOTIDINE (10MG/ML) 2ML VL IV SCH (09:41)
[2020-07-21 12:15] VITALS: BP 141/70
== END 2020-07-21 17:09 | disposition home or self-care (01) | DRG 177 ==
LOC: ER 21:34 → TELE 21:35 → TELE-EAST 07-10 08:37
PROVIDERS: ADMIT Internal Medicine Cardiovascular Disease; ATTEND Internal Medicine Cardiovascular Disease
DX: U07.1 COVID-19 (principal); J12.89 Other viral pneumonia; J96.01 Acute respiratory failure with hypoxia; E87.3 Alkalosis; J44.0 Chronic obstructive pulmonary disease with (acute) lower respiratory infection; I10 Essential (primary) hypertension; I25.119 Atherosclerotic heart disease of native coronary artery with unspecified angina pectoris; G89.4 Chronic pain syndrome; E03.9 Hypothyroidism, unspecified; E78.5 Hyperlipidemia, unspecified
CPT/HCPCS: 36415; 36600; 71045; 80048; 80053; 81001; 82805; 83605; 83735; 84484; 85025; 87040; 87426; 93005; 94640; 96365; 96375; G0378; J1100; J2405; J3490

== ENCOUNTER → 2020-08-09 | Outpatient (CLI) | payer MEDICARE, MEDICAID ==
[~2020-08-09] MED LIST changes: +APIX2.5T PO; -ASPI81TA69 PO; +NITR400A2 TL; -PRAS10TA PO
[2020-08-09 12:02] LABS: Hematocrit 40.9 % (36.0-46.0); Hemoglobin 13.3 g/dL (12.2-16.2); Mean Corpuscular Hgb Conc. 32.5 g/dL (32.0-36.0); Mean Corpuscular Volume 92.4 fL (80.0-100.0); Platelet Count (auto) 266 10^3/uL (140-450); Red Blood Cells 4.43 10^6/uL (4.0-5.20); Red Cell Distribution Width 17.6 % (11.8-14.3); White Blood Cell 16.5 10^3/uL (4.4-10.8)
[2020-08-09 12:06] LABS: Urine Blood Negative /uL (Negative)
[2020-08-09 12:17] LABS: Band Neutrophils % (manual) 0; Basophils % (manual) 0 (0.0-2.0); Blast Cells 0; Eosinophils % (manual) 0 (0-7); Monocytes % (manual) 0 (0-12); Promyelocytes % 0; Reactive Lymphocytes 0
[2020-08-09 12:19] LABS: Albumin 3.4 g/dL (3.4-5.0); Potassium 4.2 mmol/L (3.5-5.1)
[2020-08-09 12:26] LABS: BUN/Creatinine Ratio 44.4; Bilirubin, Direct 0.2 mg/dL (0-0.2); Bilirubin, Total 0.6 mg/dL (0.2-1.0); Calcium 8.6 mg/dL (8.5-10.1); Total Protein 6.3 g/dL (6.4-8.2)
[2020-08-09 12:29] LABS: Lymphocytes % (manual) 12 (10.0-50.0); Metamyelocytes % 1; Myelocytes % 4
== END | disposition home or self-care (01) ==
LOC: Rad HDHVI 10:37
PROVIDERS: ATTEND Internal Medicine Cardiovascular Disease
DX: I70.0 Atherosclerosis of aorta (principal); D51.3 Other dietary vitamin B12 deficiency anemia; I10 Essential (primary) hypertension; E11.9 Type 2 diabetes mellitus without complications; E55.9 Vitamin D deficiency, unspecified; D64.9 Anemia, unspecified; R00.2 Palpitations; R53.1 Weakness; R30.0 Dysuria
CPT/HCPCS: 36415; 71046; 80048; 80061; 80076; 81003; 82306; 83036; 84443; 85007; 85025; 85027; 87086; 87088; 87186

== ENCOUNTER → 2020-11-30 | Outpatient (CLI) | payer MEDICARE, MEDICAID | END | disposition home or self-care (01) | LOC: Rad HDHVI 13:51 | PROVIDERS: ATTEND Internal Medicine Cardiovascular Disease | DX: I08.3 Combined rheumatic disorders of mitral, aortic and tricuspid valves (principal); R00.2 Palpitations; R06.02 Shortness of breath | CPT/HCPCS: 93306 ==

== ENCOUNTER → 2020-12-16 | Outpatient (CLI) | payer MEDICARE, MEDICAID ==
[~2020-12-16] VITALS: Ht 160 cm; Wt 61.2 kg
[~2020-12-16] MED LIST changes: +ADENOSINE 51 MG in GIVE UN-DILUTED 0 ML IV ONE; +ADENOSINE 90 MG/30 ML INJ IV ONE
== END | disposition home or self-care (01) ==
LOC: Rad HDHVI 09:25
PROVIDERS: ATTEND Internal Medicine Cardiovascular Disease
DX: I10 Essential (primary) hypertension (principal); R00.2 Palpitations; E78.5 Hyperlipidemia, unspecified; J44.9 Chronic obstructive pulmonary disease, unspecified; Z82.49 Family history of ischemic heart disease and other diseases of the circulatory system
CPT/HCPCS: 78452; 93005; 96374; 96375; A9500; J0153

== ENCOUNTER → 2021-01-25 | Outpatient (CLI) | payer MEDICARE, MEDICAID ==
[~2021-01-25] MED LIST changes: -ADENOSINE 51 MG in GIVE UN-DILUTED 0 ML IV ONE; -ADENOSINE 90 MG/30 ML INJ IV ONE; +MULTIPLE VIT 10 ML IV ONE; +MVI in SODIUM CHLORIDE 0.9% 1,000 ML IVB ONE
[2021-01-25 11:00] VITALS: BP 141/61
[2021-01-25 12:20] VITALS: BP 128/54
[2021-01-25 13:00] VITALS: BP 121/52
[2021-01-25 14:00] VITALS: BP 130/62
[2021-01-25 14:53] VITALS: BP 135/53
== END | disposition home or self-care (01) ==
LOC: CHF HDHVI 10:54
PROVIDERS: ATTEND Internal Medicine Cardiovascular Disease
DX: E86.0 Dehydration (principal); I48.91 Unspecified atrial fibrillation; J44.9 Chronic obstructive pulmonary disease, unspecified; I10 Essential (primary) hypertension; E78.5 Hyperlipidemia, unspecified
CPT/HCPCS: 93005; 96365; 96366; G0463; J7030

== ENCOUNTER → 2021-02-01 | Outpatient (CLI) | payer MEDICARE, MEDICAID ==
[2021-02-01 08:51] VITALS: BP 148/55
[2021-02-01 09:40] VITALS: BP 122/56
[2021-02-01 10:30] VITALS: BP 141/55
[2021-02-01 11:27] VITALS: BP 114/57
[2021-02-01 12:30] VITALS: BP 153/58
[2021-02-01 13:34] VITALS: BP 146/65
== END | disposition home or self-care (01) ==
LOC: Rad HDHVI 08:56
PROVIDERS: ATTEND Internal Medicine Cardiovascular Disease
DX: E86.0 Dehydration (principal); J44.9 Chronic obstructive pulmonary disease, unspecified; I10 Essential (primary) hypertension; E78.5 Hyperlipidemia, unspecified; I48.91 Unspecified atrial fibrillation
CPT/HCPCS: 71046; 96365; 96366; G0463; J7030

== ENCOUNTER → 2021-07-15 | Outpatient (CLI) | payer MEDICARE, MEDICAID ==
[~2021-07-15] MED LIST changes: -MULTIPLE VIT 10 ML IV ONE; -MVI in SODIUM CHLORIDE 0.9% 1,000 ML IVB ONE
== END | disposition home or self-care (01) ==
LOC: Rad HDHVI 11:24
PROVIDERS: ATTEND Internal Medicine Cardiovascular Disease
DX: R06.02 Shortness of breath (principal); I70.0 Atherosclerosis of aorta; M85.80 Other specified disorders of bone density and structure, unspecified site
CPT/HCPCS: 71046

== ENCOUNTER → 2021-09-05 | Outpatient (CLI) | payer MEDICARE, MEDICAID ==
[~2021-09-05] MED LIST changes: +IOHEXOL 350 MG/ML 100ML IJ ONE
[2021-09-05 16:10] VITALS: BP 132/60
[2021-09-05 17:33] VITALS: BP 134/52
== END | disposition home or self-care (01) ==
LOC: Rad HDHVI 15:59
PROVIDERS: ATTEND Internal Medicine Cardiovascular Disease
DX: R94.4 Abnormal results of kidney function studies (principal)
CPT/HCPCS: 36415; 82565; G0463; Q9967

== ENCOUNTER → 2021-09-06 | Outpatient (CLI) | payer MEDICARE, MEDICAID ==
[~2021-09-06] MED LIST changes: -IOHEXOL 350 MG/ML 100ML IJ ONE
[2021-09-06 11:29] LABS: Basophils # (auto) 0 10 ^3/uL (0-0.2); Basophils % (auto) 0.6 % (0.0-2.0); Eosinophils # (auto) 0.1 10 ^3/uL (0-0.8); Eosinophils % (auto) 2.4 % (0.0-7.0); Hematocrit 38.3 % (36.0-46.0); Hemoglobin 12.6 g/dL (12.2-16.2); Lymphocytes # (auto) 1.1 10 ^3/uL (0.4-5.4); Lymphocytes % (auto) 17.4 % (10.0-50.0); Mean Corpuscular Hemoglobin 28.9 pg (28.0-32.0); Mean Corpuscular Hgb Conc. 32.8 g/dL (32.0-36.0); Mean Corpuscular Volume 88.2 fL (80.0-100.0); Monocytes # (auto) 0.6 10 ^3/uL (0-1.3); Monocytes % (auto) 9.7 % (0.0-12.0); Neutrophils # (auto) 4.3 10 ^3/uL (1.6-8.6); Neutrophils % (auto) 69.9 % (37.0-80.0); Nucleated Red Blood Cells % 0.1 %; Red Blood Cells 4.35 10^6/uL (4.0-5.20); Red Cell Distribution Width 14.5 % (11.8-14.3); White Blood Cell 6.1 10^3/uL (4.4-10.8)
[2021-09-06 11:31] LABS: Urine Blood Negative /uL (Negative); Urine Specific Gravity 1.034 (1.001-1.035)
[2021-09-06 11:40] LABS: Albumin 3.1 g/dL (3.4-5.0); Calcium 8.9 mg/dL (8.5-10.1); Potassium 4.4 mmol/L (3.5-5.1)
[2021-09-06 11:44] LABS: BUN/Creatinine Ratio 22.1; Bilirubin, Total 0.5 mg/dL (0.2-1.0)
[2021-09-06 11:59] LABS: Free T4 (Free Thyroxine) 1.05 ng/dL (0.89-1.76)
== END | disposition home or self-care (01) ==
LOC: LAB 08:45
PROVIDERS: ATTEND Internal Medicine Cardiovascular Disease
DX: D51.3 Other dietary vitamin B12 deficiency anemia (principal); E55.9 Vitamin D deficiency, unspecified; E11.9 Type 2 diabetes mellitus without complications; I10 Essential (primary) hypertension; D64.9 Anemia, unspecified; R00.2 Palpitations; R53.1 Weakness; R30.0 Dysuria
CPT/HCPCS: 36415; 80053; 80061; 81003; 82306; 82607; 83036; 84439; 84443; 85025; 87086

== ENCOUNTER → 2021-09-23 | Outpatient (CLI) | payer MEDICARE, MEDICAID | END | disposition home or self-care (01) | LOC: Rad HDHVI 10:07 | PROVIDERS: ATTEND Internal Medicine Cardiovascular Disease | DX: I65.22 Occlusion and stenosis of left carotid artery (principal); I10 Essential (primary) hypertension; E78.5 Hyperlipidemia, unspecified | CPT/HCPCS: 93880 ==

== ENCOUNTER → 2021-10-04 | Outpatient (CLI) | payer MEDICARE, MEDICAID ==
[2021-10-04 11:29] LABS: Urine Blood Negative /uL (Negative); Urine Specific Gravity 1.017 (1.001-1.035)
== END | disposition home or self-care (01) ==
LOC: LAB 09:52
PROVIDERS: ATTEND Internal Medicine Cardiovascular Disease
DX: N39.0 Urinary tract infection, site not specified (principal)
CPT/HCPCS: 81003; 87086

== ENCOUNTER → 2021-11-18 | Outpatient (CLI) | payer MEDICARE, MEDICAID | END | disposition home or self-care (01) | LOC: Rad HDHVI 08:05 | PROVIDERS: ATTEND Internal Medicine Cardiovascular Disease | DX: R07.89 Other chest pain (principal); R06.02 Shortness of breath | CPT/HCPCS: 93306 ==

== ENCOUNTER → 2022-06-26 | Outpatient (CLI) | payer MEDICARE, MEDICAID | END | disposition home or self-care (01) | LOC: Rad HDHVI 12:34 | PROVIDERS: ATTEND Internal Medicine Cardiovascular Disease | DX: R06.02 Shortness of breath (principal); M47.814 Spondylosis without myelopathy or radiculopathy, thoracic region | CPT/HCPCS: 71046 ==

== ENCOUNTER → 2022-09-01 | Outpatient (CLI) | payer MEDICARE, MEDICAID | END | disposition home or self-care (01) | LOC: Rad HDHVI 12:08 | PROVIDERS: ATTEND Internal Medicine | DX: I70.0 Atherosclerosis of aorta (principal); R06.02 Shortness of breath; M47.814 Spondylosis without myelopathy or radiculopathy, thoracic region; R05.9 Cough, unspecified | CPT/HCPCS: 71046 ==

== ENCOUNTER 2022-09-19 10:56 | Inpatient (IN) | payer MEDICARE, MEDICAID ==
[~2022-09-19] VITALS: Ht 160 cm; Wt 64.1 kg
[~2022-09-19 10:56] MED LIST changes: +AZIT500T66 PO; +LISI20TA28 PO; +METH4PAK PO; +METO25TA93 PO; +PRED20TA2 PO
[2022-09-19] MEDS ORDERED: ASPirin 325 MG TAB PO ONE (11:15)
[2022-09-19 11:37] LABS: Hematocrit 41.5 % (36.0-46.0); Hemoglobin 13.6 g/dL (12.2-16.2); Mean Corpuscular Hemoglobin 29.7 pg (28.0-32.0); Mean Corpuscular Hgb Conc. 32.8 g/dL (32.0-36.0); Mean Corpuscular Volume 90.4 fL (80.0-100.0); Red Blood Cells 4.59 10^6/uL (4.0-5.20); Red Cell Distribution Width 15.7 % (11.8-14.3); White Blood Cell 15.6 10^3/uL (4.4-10.8)
[2022-09-19 11:47] LABS: Basophils % (manual) 0 (0.0-2.0); Blast Cells 0; Myelocytes % 0; Promyelocytes % 0; Reactive Lymphocytes 0
[2022-09-19 11:52] LABS: Albumin 3.1 g/dL (3.4-5.0); Potassium 4.3 mmol/L (3.5-5.1)
[2022-09-19 11:55] LABS: BUN/Creatinine Ratio 35.4; Bilirubin, Total 0.6 mg/dL (0.2-1.0); Total Protein 5.8 g/dL (6.4-8.2)
[2022-09-19] MEDS ORDERED: ENOXAPARIN SOD 60 MG/0.6 ML SYRINGE SC ONE (13:45)
[2022-09-19] MEDS ORDERED: cefTRIAXone 1GM/50ML D5W 50 ML IV ONE (13:45)
[2022-09-19] MEDS ORDERED: AZITHROMYCIN 500MG/ 250ML 250 ML IV ONE (13:45)
[2022-09-19 13:52] LABS: Band Neutrophils % (manual) 4; Eosinophils % (manual) 1 (0-7); Lymphocytes % (manual) 20 (10.0-50.0); Metamyelocytes % 1; Monocytes % (manual) 8 (0-12)
[2022-09-19] MEDS ORDERED: PANTOPRAZOLE 40 MG/10 ML VIAL INJ IV ONE (14:30)
[2022-09-19] MEDS ORDERED: ACETAMINOPHEN 325 MG TAB PO PRN (14:30)
[2022-09-19] MEDS ORDERED: MORPHINE SULFATE INJ 2 MG/ml SYRG IV PRN (14:30)
[2022-09-19] MEDS ORDERED: NITROGLYCERIN 0.4 MG SL TAB SL PRN (14:30)
[2022-09-19 15:08] LABS: Cholesterol 180 mg/dL (< 200)
[2022-09-19 15:20] LABS: HDL Cholesterol 52 mg/dL (40-59); LDL Cholesterol 95 mg/dL (< 100); Triglycerides 217 mg/dL (< 150)
[2022-09-20 03:37] LABS: Basophils # (auto) 0.1 10 ^3/uL (0-0.2); Basophils % (auto) 0.4 % (0.0-2.0); Eosinophils # (auto) 0.1 10 ^3/uL (0-0.8); Eosinophils % (auto) 0.5 % (0.0-7.0); Hematocrit 40.7 % (36.0-46.0); Hemoglobin 13.5 g/dL (12.2-16.2); Lymphocytes # (auto) 2.2 10 ^3/uL (0.4-5.4); Mean Corpuscular Hemoglobin 29.7 pg (28.0-32.0); Mean Corpuscular Hgb Conc. 33.1 g/dL (32.0-36.0); Mean Corpuscular Volume 89.8 fL (80.0-100.0); Monocytes # (auto) 1.1 10 ^3/uL (0-1.3); Monocytes % (auto) 7.7 % (0.0-12.0); Neutrophils # (auto) 10.5 10 ^3/uL (1.6-8.6); Neutrophils % (auto) 75.4 % (37.0-80.0); Red Blood Cells 4.53 10^6/uL (4.0-5.20); Red Cell Distribution Width 15.8 % (11.8-14.3); White Blood Cell 13.9 10^3/uL (4.4-10.8)
[2022-09-20 03:50] LABS: Albumin 3.1 g/dL (3.4-5.0); Calcium 8.6 mg/dL (8.5-10.1); Potassium 4.1 mmol/L (3.5-5.1)
[2022-09-20 03:53] LABS: BUN/Creatinine Ratio 43.3
[2022-09-20 03:55] LABS: Bilirubin, Total 0.7 mg/dL (0.2-1.0); Total Protein 5.9 g/dL (6.4-8.2)
[2022-09-20] MEDS: SODIUM CHLORIDE 0.9% 1,000 ML IV SCH ×3 (04:40→20:34)
[2022-09-20 09:59] LABS: Urine Bacteria FEW /hpf (None Seen); Urine Blood Negative /uL (Negative); Urine Specific Gravity 1.016 (1.001-1.035); Urine WBC 11 /hpf (0 - 5)
[2022-09-20] MEDS: ASPirin 81 mg TAB PO SCH (11:43)
[2022-09-20] MEDS: levoFLOXacin 750MG 150 ML IV SCH (11:43)
[2022-09-20] MEDS: PANTOPRAZOLE 40 MG/10 ML VIAL INJ IV SCH (11:44)
[2022-09-20] MEDS: ENOXAPARIN SOD 40 MG/0.4 ML SYRINGE SC SCH (11:44)
[2022-09-20] MEDS: APIXABAN 2.5 MG TAB PO SCH (11:58)
[2022-09-20] MEDS: ALBUTEROL SULF 2.5 MG/0.5ML(0.5%) NEB SOLN NEB SCH ×3 (14:00→22:22)
[2022-09-20] MEDS: methylPREDNISolone SOD SUCC 40 MG/ML VL IV SCH ×2 (14:00→21:37)
[2022-09-20] MEDS: IPRATROPIUM BROM 0.5 MG/2.5ML INH SOL NEB SCH ×3 (14:00→22:22)
[2022-09-20 20:15] VITALS: BP 121/62
[2022-09-20] MEDS: ATENOLOL 25 MG TAB PO SCH (21:38)
[2022-09-21] MEDS: IPRATROPIUM BROM 0.5 MG/2.5ML INH SOL NEB SCH ×6 (02:16→23:13)
[2022-09-21] MEDS: ALBUTEROL SULF 2.5 MG/0.5ML(0.5%) NEB SOLN NEB SCH ×6 (02:16→23:13)
[2022-09-21 05:00] VITALS: BP 149/64
[2022-09-21] MEDS: methylPREDNISolone SOD SUCC 40 MG/ML VL IV SCH ×3 (05:34→21:37)
[2022-09-21 05:39] VITALS: BP 134/86
[2022-09-21 09:00] VITALS: BP 127/60
[2022-09-21] MEDS: levoFLOXacin 750MG 150 ML IV SCH (10:16)
[2022-09-21] MEDS: ASPirin 81 mg TAB PO SCH (10:17)
[2022-09-21] MEDS: APIXABAN 2.5 MG TAB PO SCH (10:17)
[2022-09-21] MEDS: ENOXAPARIN SOD 40 MG/0.4 ML SYRINGE SC SCH (10:17)
[2022-09-21] MEDS: ATENOLOL 25 MG TAB PO SCH ×2 (10:18→21:38)
[2022-09-21] MEDS: PANTOPRAZOLE 40 MG/10 ML VIAL INJ IV SCH (10:19)
[2022-09-21] MEDS: SODIUM CHLORIDE 0.9% 1,000 ML IV SCH (10:24)
[2022-09-21 13:00] VITALS: BP 111/50
[2022-09-21 17:00] VITALS: BP 120/55
[2022-09-22] MEDS: SODIUM CHLORIDE 0.9% 1,000 ML IV SCH ×2 (00:03→18:08)
[2022-09-22] MEDS: IPRATROPIUM BROM 0.5 MG/2.5ML INH SOL NEB SCH ×6 (02:25→21:44)
[2022-09-22] MEDS: ALBUTEROL SULF 2.5 MG/0.5ML(0.5%) NEB SOLN NEB SCH ×6 (02:25→21:44)
[2022-09-22 05:00] VITALS: BP 112/45
[2022-09-22] MEDS: methylPREDNISolone SOD SUCC 40 MG/ML VL IV SCH ×3 (05:34→21:31)
[2022-09-22 05:45] VITALS: BP 109/52
[2022-09-22 08:38] VITALS: BP 127/47
[2022-09-22] MEDS: levoFLOXacin 750MG 150 ML IV SCH (11:12)
[2022-09-22] MEDS: APIXABAN 2.5 MG TAB PO SCH (11:13)
[2022-09-22] MEDS: ENOXAPARIN SOD 40 MG/0.4 ML SYRINGE SC SCH (11:13)
[2022-09-22] MEDS: ASPirin 81 mg TAB PO SCH (11:14)
[2022-09-22] MEDS: PANTOPRAZOLE 40 MG/10 ML VIAL INJ IV SCH (11:14)
[2022-09-22] MEDS: ATENOLOL 25 MG TAB PO SCH ×2 (11:15→21:33)
[2022-09-22 12:32] VITALS: BP 118/47
[2022-09-22 16:36] VITALS: BP 122/53
[2022-09-22 22:00] VITALS: BP 120/51
[2022-09-23] MEDS ORDERED: guaiFENesin 200 MG/10 ML UD PO PRN (00:15)
[2022-09-23] MEDS: guaiFENesin-CODEINE Liq 5 ML UD PO PRN ×2 (01:17→19:42)
[2022-09-23] MEDS: IPRATROPIUM BROM 0.5 MG/2.5ML INH SOL NEB SCH ×6 (02:02→22:07)
[2022-09-23] MEDS: ALBUTEROL SULF 2.5 MG/0.5ML(0.5%) NEB SOLN NEB SCH ×6 (02:02→22:07)
[2022-09-23 05:00] VITALS: BP 127/52
[2022-09-23] MEDS: SODIUM CHLORIDE 0.9% 1,000 ML IV SCH ×2 (05:41→18:46)
[2022-09-23] MEDS: methylPREDNISolone SOD SUCC 40 MG/ML VL IV SCH ×3 (05:41→21:41)
[2022-09-23 09:00] VITALS: BP 121/46
[2022-09-23] MEDS: ATENOLOL 25 MG TAB PO SCH ×2 (11:08→21:41)
[2022-09-23] MEDS: ASPirin 81 mg TAB PO SCH (11:08)
[2022-09-23] MEDS: APIXABAN 2.5 MG TAB PO SCH (11:08)
[2022-09-23] MEDS: ENOXAPARIN SOD 40 MG/0.4 ML SYRINGE SC SCH (11:09)
[2022-09-23] MEDS: PANTOPRAZOLE 40 MG/10 ML VIAL INJ IV SCH (11:09)
[2022-09-23 13:00] VITALS: BP 128/53
[2022-09-23 17:00] VITALS: BP 137/69
[2022-09-23 20:00] VITALS: BP 137/69
[2022-09-23 21:58] VITALS: BP 129/53
[2022-09-24] MEDS: ALBUTEROL SULF 2.5 MG/0.5ML(0.5%) NEB SOLN NEB SCH ×6 (01:53→21:43)
[2022-09-24] MEDS: IPRATROPIUM BROM 0.5 MG/2.5ML INH SOL NEB SCH ×5 (01:53→21:43)
[2022-09-24] MEDS: SODIUM CHLORIDE 0.9% 1,000 ML IV SCH ×2 (02:00→09:27)
[2022-09-24 05:00] VITALS: BP 134/54
[2022-09-24] MEDS: methylPREDNISolone SOD SUCC 40 MG/ML VL IV SCH ×3 (05:39→22:49)
[2022-09-24 08:00] VITALS: BP 138/49
[2022-09-24] MEDS: APIXABAN 2.5 MG TAB PO SCH (09:28)
[2022-09-24] MEDS: ENOXAPARIN SOD 40 MG/0.4 ML SYRINGE SC SCH (09:30)
[2022-09-24] MEDS: ATENOLOL 25 MG TAB PO SCH ×2 (09:30→22:49)
[2022-09-24] MEDS: PANTOPRAZOLE 40 MG/10 ML VIAL INJ IV SCH (09:30)
[2022-09-24] MEDS: ASPirin 81 mg TAB PO SCH (09:30)
[2022-09-24] MEDS ORDERED: levoFLOXacin 750MG 150 ML IV SCH (10:00)
[2022-09-24 13:26] VITALS: BP 138/51
[2022-09-24 17:24] VITALS: BP 152/62
[2022-09-24] MEDS ORDERED: ALBUTEROL MEDNEB 2.5 mg/3ml NEB ONE ×2 (18:05→21:37)
[2022-09-24 22:00] VITALS: BP 129/52
[2022-09-25] MEDS ORDERED: ALBUTEROL MEDNEB 2.5 mg/3ml NEB ONE ×4 (01:55→13:37)
[2022-09-25] MEDS: IPRATROPIUM BROM 0.5 MG/2.5ML INH SOL NEB SCH ×4 (01:58→13:46)
[2022-09-25] MEDS: ALBUTEROL SULF 2.5 MG/0.5ML(0.5%) NEB SOLN NEB SCH ×4 (01:58→13:46)
[2022-09-25] MEDS: SODIUM CHLORIDE 0.9% 1,000 ML IV SCH ×2 (02:00→03:00)
[2022-09-25 05:00] VITALS: BP 135/59
[2022-09-25] MEDS: methylPREDNISolone SOD SUCC 40 MG/ML VL IV SCH ×2 (06:04→15:24)
[2022-09-25 09:00] VITALS: BP 138/57
[2022-09-25] MEDS: ASPirin 81 mg TAB PO SCH (09:32)
[2022-09-25] MEDS: ENOXAPARIN SOD 40 MG/0.4 ML SYRINGE SC SCH (09:32)
[2022-09-25] MEDS: PANTOPRAZOLE 40 MG/10 ML VIAL INJ IV SCH (09:32)
[2022-09-25] MEDS: APIXABAN 2.5 MG TAB PO SCH (09:32)
[2022-09-25] MEDS: ATENOLOL 25 MG TAB PO SCH (09:33)
[2022-09-25 12:47] VITALS: BP 138/59
[2022-09-25 17:00] VITALS: BP 147/61
[2022-09-25 17:47] VITALS: BP 138/51
== END 2022-09-25 18:25 | disposition home or self-care (01) | DRG 313 ==
LOC: ER 10:56 → TELE 14:26 → TELE-WESTW 09-20 19:03
PROVIDERS: ADMIT Nurse Practitioner Family; ATTEND Internal Medicine Cardiovascular Disease
DX: R07.9 Chest pain, unspecified (principal); N39.0 Urinary tract infection, site not specified; E46 Unspecified protein-calorie malnutrition; J44.1 Chronic obstructive pulmonary disease with (acute) exacerbation; I20.9 Angina pectoris, unspecified; I10 Essential (primary) hypertension; E03.9 Hypothyroidism, unspecified; R79.89 Other specified abnormal findings of blood chemistry; I48.91 Unspecified atrial fibrillation; E78.00 Pure hypercholesterolemia, unspecified; Z20.822 Contact with and (suspected) exposure to COVID-19; Z68.23 Body mass index [BMI] 23.0-23.9, adult; Z86.16 Personal history of COVID-19; Z87.01 Personal history of pneumonia (recurrent); Z82.49 Family history of ischemic heart disease and other diseases of the circulatory system
CPT/HCPCS: 36415; 71045; 78582; 80053; 80061; 81001; 82565; 83036; 83605; 84484; 85007; 85025; 85027; 85379; 87040; 87081; 87086; 87426; 87804; 93005; 93970; 94640; C9113; G0378; J0696; J1956

== ENCOUNTER → 2022-12-20 | Outpatient (CLI) | payer MEDICARE, MEDICAID | END | disposition home or self-care (01) | LOC: Rad HDHVI 10:35 | PROVIDERS: ATTEND Internal Medicine Cardiovascular Disease | DX: I08.3 Combined rheumatic disorders of mitral, aortic and tricuspid valves (principal); I10 Essential (primary) hypertension; E78.5 Hyperlipidemia, unspecified | CPT/HCPCS: 93306 ==

== ENCOUNTER → 2023-04-11 | Outpatient (CLI) | payer MEDICARE, MEDICAID ==
[~2023-04-11] MED LIST changes: -LISI20TA28 PO; +LISI20TA56 PO; -POTA-167 PO; +POTA-211 PO
== END | disposition home or self-care (01) ==
LOC: Rad HDHVI 11:30
PROVIDERS: ATTEND Internal Medicine Cardiovascular Disease
DX: M77.32 Calcaneal spur, left foot (principal)
CPT/HCPCS: 73630

== ENCOUNTER → 2023-07-27 | Outpatient (CLI) | payer MEDICARE, MEDICAID | END | disposition home or self-care (01) | LOC: Rad HDHVI 13:49 | PROVIDERS: ATTEND Internal Medicine Cardiovascular Disease | DX: M25.552 Pain in left hip (principal) ==